=== PATIENT | male | born 1975 | race Asian ===

== ENCOUNTER 2017-07-26 13:04 | Emergency (ER) | payer OTHER ==
[2017-07-26 13:24] VITALS: TEMP 97.3; BMI 27.4
--- NOTE | 2017-07-26 14:33 | PDOC ---
History of Present Illness - General Chief Complaint: Tachycardia Stated Complaint: BLOOD PRESSURE PROBLEM Time Seen by Provider: 07/26/17 13:38 - History of Present Illness Initial Comments: 07/26/17 14:24 42 yo M with no significant pmh who p/w elevated BP. Patient reports elevated BP at outside office ( Dr. Tomasa Hendrix) with 160/114, Nebivolol 10mg given at office with no improvement in BP. EKG in outside office with sinus tachycardia~103. Pt. reports chronic diastolic BP of ~100. Not on antihypertensive management. Denies SALAMANCA, vision changes, CP, palpitations, wheezing, cough, hemoptysis, orhtopnea, leg swelling, N/V, F/C, abdominal pain, diarrhea, BPR, constipation, urinary complaints, dysuria, hematuria, weakness, lightheadedness, sensory changes. Denies h/o heart dz. CAD/CT, stent placement, or prior stress testing. Denies h/o PE/DVT, malignancy, recent trauma or surgery , recent trauma or immobilization, hormonal therapy. Denies tobacco use. Past History - Past Medical History Allergies/Adverse Reactions: Allergies Allergy/AdvReac Type Severity Reaction Status Date / Time No Known Allergies Allergy Verified 07/26/17 13:18 Home Medications: Ambulatory Orders No Home Medications 0 dose .ROUTE UTDICT 05/01/13 COPD: No Thyroid Disease: No Other medical history: migraines - Immunization History Immunization Up to Date: Yes - Suicide/Smoking/Psychosocial Hx Smoking Status: No Smoking History: Never smoked Number of Cigarettes Smoked Daily: 0 Hx Alcohol Use: No Review of Systems - Review of Systems Comments:: 07/26/17 14:33 GENERAL/CONSTITUTIONAL: No fever or chills. No weakness. HEAD, EYES, EARS, NOSE AND THROAT: No change in vision. No ear pain or discharge. No sore throat. CARDIOVASCULAR: No chest pain or shortness of breath RESPIRATORY: No cough, wheezing, or hemoptysis. GASTROINTESTINAL: No nausea, vomiting, diarrhea or constipation. GENITOURINARY: No dysuria, frequency, or change in urination. MUSCULOSKELETAL: No joint or muscle swelling or pain. No neck or back pain. SKIN: No rash NEUROLOGIC: No headache, vertigo, loss of consciousness, or change in strength/ sensation. ENDOCRINE: No increased thirst. No abnormal weight change HEMATOLOGIC/LYMPHATIC: No anemia, easy bleeding, or history of blood clots. ALLERGIC/IMMUNOLOGIC: No hives or skin allergy. *Physical Exam - Vital Signs Last Vital Signs Temp Pulse Resp BP Pulse Ox 97.3 F L 136 H 18 150/104 100 07/26/17 13:20 07/26/17 13:20 07/26/17 13:20 07/26/17 14:05 07/26/17 13:20 - Physical Exam Comments: 07/26/17 14:34 GENERAL: Awake, alert, and fully oriented, in no acute distress HEAD: No signs of trauma, normocephalic, atraumatic EYES: PERRLA, EOMI, sclera anicteric, conjunctiva clear ENT: Hearing grossly normal, nares patent, oropharynx clear without exudates. Moist mucosa NECK: Normal ROM, supple, no lymphadenopathy, JVD, or masses LUNGS: No distress, speaks full sentences, clear to auscultation bilaterally HEART: Regular rate and rhythm, normal S1 and S2, no murmurs, rubs or gallops, peripheral pulses normal and equal bilaterally. ABDOMEN: Soft, nontender, normoactive bowel sounds. No guarding, no rebound. No masses EXTREMITIES : Normal inspection, Normal range of motion, no edema. No clubbing or cyanosis. NEUROLOGICAL: Cranial nerves II through XII grossly intact. Normal speech, normal gait, no focal sensorimotor deficits SKIN: Warm, Dry, normal turgor, no rashes or lesions noted ED Treatment Course - LABORATORY CBC & Chemistry Diagram: 07/26/17 14:00 07/26/17 14:00 - ADDITIONAL ORDERS Additional order review: Laboratory Results 07/26/17 07/26/17 14:00 14:00 PT with INR 11.30 INR 1.00 Sodium 136 Potassium 4.4 Chloride 102 Carbon Dioxide 28 Anion Gap 6 L BUN 7 Creatinine 0.8 Creat Clearance w eGFR > 60 Random Glucose 106 Calcium 9.5 Magnesium 2.2 Total Bilirubin 1.1 H AST 27 ALT 72 Alkaline Phosphatase 124 H Creatine Kinase 172 Creatine Kinase Index 0.6 CK-MB (CK-2) 1.138 Troponin I < 0.02 Total Protein 8.4 H Albumin 4.6 TSH 1.72 07/26/17 14:00 RBC 5.72 H MCV 86.8 MCHC 33.3 RDW 14.6 MPV 7.6 Neutrophils % 78.7 Lymphocytes % 12.9 Monocytes % 5.1 Eosinophils % 2.3 Basophils % 1.0 Medical Decision Making - Medical Decision Making 07/26/17 14:33 42 yo M with no significant pmh who p/w elevated elevated BP 160/114 at outside office ( Dr. Tomasa Hendrix) concerned for HTN urgency s/p Nebivolol 10mg given at office with no improvement in BP. EKG in outside office with sinus tachycardia~103. Pt. reports chronic diastolic BP of ~100. Not on antihypertensive management. Denies SALAMANCA, vision changes, CP, palpitations, wheezing, cough, hemoptysis, orthopnea, leg swelling, N/V, F/C, abdominal pain, diarrhea, BPR, constipation, urinary complaints, dysuria, hematuria, weakness, lightheadedness, sensory changes. No significant cardiac hx. Physical exam unremarkable. HR ~103, BP 146/103. Patient with no evidence or s/s of end organ damage. Low suspicion of HTN emergency. Based on history, pt. reports chronic HTN, will avoid rapid lowering of BP d/t risk of cerebral hypoperfusion. Low risk PE based on weils criteria. ED Course: CBC, CMP, Cardiac Pr, EKG, CXR 07/26/17 14:36 EKG: Sinus Tachycardia~111. absent KELLY, STD, or TWI. Normal interval duration and axis. 07/26/17 14:39 07/26/17 14:46 WBC 14.6, Hgb 5.72, Plt 822 07/26/17 15:45 trop: Neg CMP : Unremarkable 07/26/17 16:07 Pt. BP improved to 135/96. Pt. stable for d/c with return precautions. Spoke to Dr. Natalio Hendrix who advised pt. to f/u with him within 48 hours. Does not with to start antihypertensives at this time. *DC/Admit/Observation/Transfer Diagnosis at time of Disposition: Elevated BP without diagnosis of hypertension, Tachycardia - Discharge Dispostion Condition at time of disposition: Stable Admit: No - Referrals Referrals: Natalio Hendrix MD [Primary Care Provider] - Elmo Mohan MD [Staff Physician] - - Patient Instructions Printed Discharge Instructions: High Blood Pressure, DI for Tachycardia Additional Instructions: Please return to the emergency department with any new or worsening symptoms or concerns. Please follow up with your primary care physician within 72 hours. Please follow up with cardiology within one week. - Post Discharge Activity - Attestations Physician Attestion: 07/26/17 14:41 I attest to the information provided in this note.
[2017-07-26 14:35] LABS: EOS % 2.3 % (0-4.5); HEMATOCRIT 49.7 % (35.4-49); HEMOGLOBIN 16.5 GM/dL (11.7-16.9); LYMPH % 12.9 % (8-40); MCH 28.9 pg (25.7-33.7); MCHC 33.3 g/dl (32.0-35.9); MEAN CELL VOLUME 86.8 fl (80-96); MEAN PLT VOLUME 7.6 fl (7.5-11.1); MONO % 5.1 % (3.8-10.2); NEUT % 78.7 % (42.8-82.8); PLATELET COUNT 822 K/MM3 (134-434); RBC 5.72 M/mm3 (4.00-5.60); RDW 14.6 % (11.9-15.9); WHITE BLOOD COUNT 14.6 K/mm3 (4.0-10.0)
[2017-07-26 14:48] LABS: PROTHROMBIN TIME (PATIENT) 11.3 SEC (9.98-11.88)
[2017-07-26 15:07] LABS: ALBUMIN 4.6 g/dl (3.4-5.0); ANION GAP 6 (8-16); BLOOD UREA NITROGEN 7 mg/dL (7-18); CALCIUM 9.5 mg/dL (8.5-10.1); CHLORIDE 102 mmol/L (98-107); CO2 28 mmol/L (21-32); CREATININE 0.8 mg/dL (0.7-1.3); GLUCOSE,RANDOM 106 mg/dL (74-106); MAGNESIUM 2.2 mg/dL (1.8-2.4); POTASSIUM 4.4 mmol/L (3.5-5.1); SGOT/AST 27 U/L (15-37); SGPT/ALT 72 U/L (12-78); SODIUM 136 mmol/L (136-145)
[2017-07-26 15:17] LABS: ALK PHOS 124 U/L (45-117); BILIRUBIN,TOTAL 1.1 mg/dL (0.2-1.0); TOT PROT 8.4 g/dl (6.4-8.2)
--- NOTE | 2017-07-26 15:20 | PDOC ---
Attending Attestation - Resident Resident Name: Olman Zaidi - ED Attending Attestation I have performed the following: I have examined & evaluated the patient, The case was reviewed & discussed with the resident, I agree w/resident's findings & plan, Exceptions are as noted - HPI HPI: 07/26/17 15:52 Mr. Vang was sent emergency Department today by his primary care physician for evaluation of high blood pressure. Briefly he is a 42-year-old male who reports a history of migraines. He notes over the past month and increase in the frequency of his migraine headaches. He's noticed that he has had insomnia. He was seen by his primary care physician today, blood pressure noted to be very elevated. Typically his diastolic is less than 100. Today diastolic was 114. He reports no increase in salt intake. Has not been on any medications. Today he was seen by his primary care physician, due to elevated blood pressure he was given a single dose of Bystolic He waited for 30 minutes and his primary care physician's office. His blood pressure didn't decrease, he was sent to the emergency department for evaluation Patient denies chest pain, short of breath, palpitations. Currently patient has no headache. - Physicial Exam PE: 07/26/17 15:55 GENERAL: The patient is in no acute distress. HEAD: Normal EYES: PERRLA, EOMI, sclera anicteric, conjunctiva clear. ENT: Ears normal, nares patent, oropharynx clear without exudates. Moist mucous membranes. NECK: Normal range of motion, supple LUNGS: Breath sounds equal, clear to auscultation bilaterally. No wheezes, and no crackles. HEART:Regular rate and rhythm, normal S1 and S2 without murmur, rub or gallop. ABDOMEN: Soft, nontender EXTREMITIES: Normal range of motion, no edema. No clubbing or cyanosis. No erythema, or tenderness. NEUROLOGICAL: Cranial nerves II through XII grossly intact. Normal speech. No focal neurological deficits. MUSCULOSKELETAL: Back non-tender to palpation, no CVA tenderness SKIN: Warm, Dry, normal turgor, no rashes or lesions noted. - Medical Decision Making 07/26/17 15:56 Is a 42-year-old male sent to the emergency department for evaluation of elevated blood pressure. Patient was given bystolic in the office, and since the ER for evaluation Will do Labs EKG RE assess Laboratory Tests 07/26/17 07/26/17 07/26/17 14:00 14:00 14:00 WBC 14.6 H Hgb 16.5 Hct 49.7 H Plt Count 822 H INR 1.00 Creatine Kinase 172 Creatine Kinase Index 0.6 CK-MB (CK-2) 1.138 Troponin I < 0.02 TSH 1.72 Pt repeat BP: 130/91 Will discharge to home Will ask pt to follow up with Dr Casey Hendrix called He agrees with discharge Does not want to start any medications at this time Clinical Impression: Essential hypertension, initial presentation Migraines, initial presentation
[2017-07-26 16:29] VITALS: BP 129/91; PULSE 98
--- NOTE | 2017-07-27 10:10 | EKG ---
Test Reason : Blood Pressure : / mmHG Vent. Rate : 111 BPM Atrial Rate : 111 BPM P-R Int : 156 ms QRS Dur : 088 ms QT Int : 332 ms P-R-T Axes : 044 085 009 degrees QTc Int : 451 ms SINUS TACHYCARDIA OTHERWISE NORMAL ECG NO PREVIOUS ECGS AVAILABLE Confirmed by Antonio Casas MD ([id number]) on 07/27/2017 10:10:43 AM Referred By: Confirmed By:Antonio Casas MD
== END 2017-07-26 16:30 | disposition home or self-care (01) ==
LOC: JER 13:04
DX: R03.0 Elevated blood-pressure reading, without diagnosis of hypertension (principal)
CPT/HCPCS: 36415; 71045-TC-FY; 80053; 82550; 82553; 83735; 84443; 84484; 85025; 85610; 93005; 93010; 99283-25